=== PATIENT | male | born 1970 ===

== ENCOUNTER 2018-11-22 11:18 | Emergency (ER) | payer OTHER ==
[2018-11-22 12:46] VITALS: BP 109/55
--- NOTE | 2018-11-22 13:11 | XRay Report ---
RIGHT TIBIA/FIBULA: History: Puncture injury AP and lateral views of the right tibia/fibula demonstrate normal mineralization and contours for this patient's age. No evidence for fracture or bone lesion. An approximate 5 mm radiopaque foreign body is identified in the medial soft tissues at the level of the knee joint. There is diffuse soft tissue edema. IMPRESSION: Foreign body as described. Diffuse edema which could represent cellulitis.
[2018-11-22] MEDS ORDERED: BOOSTRIX IM ONE (14:08)
[2018-11-22] MEDS ORDERED: TYLENOL #3 PO ONE (14:08)
[2018-11-22] MEDS ORDERED: ZOFRAN ODT PO ONE (14:08)
[2018-11-22] MEDS ORDERED: CLEOCIN IM ONE (14:08)
[2018-11-22] MEDS ORDERED: NACL 0.9% 1000 ML 1,000 ML ONE (14:40)
--- NOTE | 2018-11-22 14:44 | Emergency Department Report ---
ED General Adult HPI - General Chief complaint: Extremity Injury, Lower Stated complaint: PUNTURE WOUND RT CALF Time Seen by Provider: 11/22/18 12:11 Source: patient, EMS Mode of arrival: Stretcher Limitations: No Limitations - History of Present Illness Severity scale (0 -10): 0 - Related Data Previous Rx's Medication Instructions Recorded Last Taken Type Acetaminophen/Codeine [Tylenol 1 tab PO Q6H PRN #15 tab 11/22/18 Unknown Rx /Codeine # 3 tab] Clindamycin [Clindamycin CAP] 150 mg PO Q8HR #63 capsule 11/22/18 Unknown Rx Ibuprofen [Motrin] 800 mg PO Q8HR PRN #30 tablet 11/22/18 Unknown Rx ED Review of Systems ROS: Stated complaint: PUNTURE WOUND RT CALF Other details as noted in HPI Comment: All other systems reviewed and negative Constitutional: denies: chills, fever Eyes: denies: eye pain, eye discharge, vision change ENT: denies: ear pain, throat pain Respiratory: denies: cough, shortness of breath, wheezing Cardiovascular: denies: chest pain, palpitations Endocrine: no symptoms reported Gastrointestinal: denies: abdominal pain, nausea, diarrhea Genitourinary: denies: urgency, dysuria Musculoskeletal: denies: back pain, joint swelling, arthralgia Skin: denies: rash, lesions Neurological: denies: headache, weakness, paresthesias Psychiatric: denies: anxiety, depression Hematological/Lymphatic: denies: easy bleeding, easy bruising ED Past Medical Hx - Past Medical History Hx Diabetes: Yes - Social History Smoking Status: Never Smoker Substance Use Type: Alcohol - Medications Home Medications: Home Medications Medication Instructions Recorded Confirmed Last Taken Type Acetaminophen/Codeine [Tylenol 1 tab PO Q6H PRN #15 tab 11/22/18 Unknown Rx /Codeine # 3 tab] Clindamycin [Clindamycin CAP] 150 mg PO Q8HR #63 capsule 11/22/18 Unknown Rx Ibuprofen [Motrin] 800 mg PO Q8HR PRN #30 tablet 11/22/18 Unknown Rx ED Physical Exam - General Limitations: No Limitations General appearance: alert, in no apparent distress - Head Head exam: Present: atraumatic, normocephalic - Eye Eye exam: Present: normal appearance, PERRL, EOMI - ENT ENT exam: Present: mucous membranes moist - Neck Neck exam: Present: normal inspection - Respiratory Respiratory exam: Present: normal lung sounds bilaterally. Absent: respiratory distress - Cardiovascular Cardiovascular Exam: Present: regular rate, normal rhythm. Absent: systolic murmur, diastolic murmur, rubs, gallop - GI/Abdominal GI/Abdominal exam: Present: soft, normal bowel sounds. Absent: distended, tenderness - Rectal Rectal exam: Present: deferred - Extremities Exam Extremities exam: Present: other (there is a puncture injury wound to the lateral aspect of the right leg without an exit wound) - Back Exam Back exam: Present: normal inspection - Neurological Exam Neurological exam: Present: alert, oriented X3 - Psychiatric Psychiatric exam: Present: normal affect, normal mood - Skin Skin exam: Present: warm, dry, intact, normal color. Absent: rash - Other Other exam information: Patient has good dorsalis pedis and posterior tibialis pulses of the right leg with good capillary refill of the digits of the right foot ED Course Vital Signs 11/22/18 12:44 Temperature 98.7 F Pulse Rate 85 Respiratory 16 Rate Blood Pressure 109/55 [Left] O2 Sat by Pulse 100 Oximetry ED Medical Decision Making - Radiology Data Radiology results: report reviewed - Medical Decision Making Patient was discussed with PD and at the scene there was a metal object at likely got caught in the secretary receptionist and projected into his right leg Patient placed in a posterior OCL wound was cleansed and crutches given Critical care attestation.: If time is entered above; I have spent that time in minutes in the direct care of this critically ill patient, excluding procedure time. ED Disposition Clinical Impression: Puncture wound of lower leg Disposition: DC-01 TO HOME OR SELFCARE Is pt being admited?: No Does the pt Need Aspirin: No Condition: Stable Instructions: Puncture Wound (ED) Additional Instructions: return if worse Prescriptions: Clindamycin [Clindamycin CAP] 150 mg PO Q8HR #63 capsule Ibuprofen [Motrin] 800 mg PO Q8HR PRN #30 tablet PRN Reason: Pain Acetaminophen/Codeine [Tylenol /Codeine # 3 tab] 1 tab PO Q6H PRN #15 tab PRN Reason: pain Referrals: [facility] [Other] - 3-5 Days ZAIN HANNA MD [Staff Physician] - 3-5 Days Time of Disposition: 14:45
== END 2018-11-22 16:29 | disposition home or self-care (01) ==
LOC: ED 11:18
DX: S81.831A Puncture wound without foreign body, right lower leg, initial encounter (principal); E11.9 Type 2 diabetes mellitus without complications; W26.8XXA Contact with other sharp object(s), not elsewhere classified, initial encounter; Y93.89 Activity, other specified; Y92.89 Other specified places as the place of occurrence of the external cause; Y99.8 Other external cause status
CPT/HCPCS: 90471; 90715; 96372; J7030; Q0162